=== PATIENT | female | born 1970 | race Caucasian/White ===

== ENCOUNTER 2017-09-22 21:16 | Inpatient (IN) | payer BC ==
[2017-09-22 21:36] LABS: URINE APPEARANCE CLEAR; URINE BILIRUBIN NEGATIVE (NEGATIVE); URINE BLOOD LARGE (NEGATIVE); URINE COLOR YELLOW; URINE GLUCOSE (UA) NEGATIVE (NEGATIVE); URINE KETONE NEGATIVE (NEGATIVE); URINE LEUKOCYTE ESTERASE TRACE (NEGATIVE); URINE NITRITE NEGATIVE (NEGATIVE); URINE PROTEIN NEGATIVE (NEGATIVE); URINE UROBILINOGEN 0.2 E.U./dL (0.20 - 1.00)
[2017-09-22] MEDS ORDERED: 0.9 % SODIUM CHLORIDE 1,000 ML BAG IV ONE (21:36)
[2017-09-22] MEDS ORDERED: ONDANSETRON HCL IV 4 MG/2 ML VIAL IV ONE (21:36)
[2017-09-22] MEDS ORDERED: HYDROMORPHONE HCL 2 MG/ML VIAL IVP ONE (21:37)
--- NOTE | 2017-09-22 21:44 | Emergency Department Record ---
History of Present Illness - General Chief complaint: Flank Pain Stated complaint: DRY HEAVES,BACK /ABDOMINAL PAIN Time Seen by Provider: 09/22/17 21:27 Source: Patient Mode of Arrival: Ambulatory Limitations: No limitations - History of Present Illness Initial comments: pt has been having r flank pain and r sided ap for 2 hours. she has dry heaves w nothing coming up. she has had gastric bypass a few years ago and has lost 100lbs. she has never had pain like this before. the pain is constant. she had 1 bout of diarrhea MD Complaint: Other Onset/Timin -: Hour(s) Location: Other (r lank and ruq and rlq) Radiation: RLQ Severity scale (1-10): 10 Quality: Sharp Consistency: Constant Improves with: None Worsens with: None Patient : No Associated Symptoms: Nausea/vomiting - Related Data Allergies Allergy/AdvReac Type Severity Reaction Status Date / Time NSAIDS (Non-Steroidal AdvReac pt had Unverified 04/26/16 11:37 Anti-Inflamma gastric bypass surgery Travel Screening - Travel/Exposure Within Last 30 Days Have you traveled within the last 30 days?: No Review of Systems Reviewed: No additional complaints except as noted below Constitutional: Reports: As per HPI. Denies: Chills, Fever, Malaise, Night sweats, Weakness, Weight change Eyes: Reports: As per HPI. Denies: Eye discharge, Eye pain, Photophobia, Vision change ENT: Reports: As per HPI. Denies: Congestion, Dental pain, Ear pain, Epistaxis , Hearing loss, Throat pain Respiratory: Reports: As per HPI. Denies: Cough, Dyspnea, Hemoptysis, Stridor, Wheezes Cardiovascular: Reports: As per HPI. Denies: Arrhythmia, Chest pain, Dyspnea on exertion, Edema, Murmurs, Orthopnea, Palpitations, Paroxysmal nocturnal dyspnea, Rheumatic Fever, Syncope Endocrine: Reports: As per HPI. Denies: Fatigue, Heat or cold intolerance, Polydipsia, Polyuria Gastrointestinal: Reports: As per HPI, Abdominal pain, Diarrhea, Nausea. Denies : Constipation, Hematemesis, Hematochezia, Melena, Vomiting Genitourinary: Reports: As per HPI. Denies: Abnormal menses, Discharge, Dyspareunia, Dysuria, Frequency, Hematuria, Incontinence, Retention, Urgency Musculoskeletal: Reports: As per HPI. Denies: Arthralgia, Back pain, Gout, Joint swelling, Myalgia, Neck pain Skin: Reports: As per HPI. Denies: Bruising, Change in color, Change in hair/ nails, Lesions, Pruritus, Rash Neurological: Reports: As per HPI. Denies: Abnormal gait, Confusion, Headache, Numbness, Paresthesias, Seizure, Tingling, Tremors, Vertigo, Weakness Psychiatric: Reports: As per HPI. Denies: Anxiety, Auditory hallucinations, Depression, Homicidal thoughts, Suicidal thoughts, Visual hallucinations Hematological/Lymphatic: Reports: As per HPI. Denies: Anemia, Blood Clots, Easy bleeding, Easy bruising, Swollen glands Past Medical History - SOCIAL HISTORY Smoking Status: Current every day smoker Alcohol Use: None Drug Use: None - RESPIRATORY Hx Respiratory Disorders: No - CARDIOVASCULAR Hx Cardio Disorders: No - NEURO Hx Neuro Disorders: No - GI Hx GI Disorders: No - Hx Genitourinary Disorders: No - ENDOCRINE Hx Endocrine Disorders: No - MUSCULOSKELETAL Hx Musculoskeletal Disorders: No - PSYCH Hx Psych Problems: No - HEMATOLOGY/ONCOLOGY Hx Hematology/Oncology Disorders: No Family Medical History Any Significant Family History?: Yes Hx Cancer: Brother/Sister Physical Exam - General General Appearance: Alert, Oriented x3, Cooperative, Mild distress - Head Head exam: Normal inspection - Eye Eye exam: Normal appearance, PERRL, EOMI Pupils: Normal accommodation - ENT ENT exam: Normal exam, Mucous membranes moist, Normal external ear exam, Normal orophraynx Ear exam: Normal external inspection. negative: External canal tenderness Nasal Exam: Normal inspection. negative: Discharge, Sinus tenderness Mouth exam: Normal external inspection, Tongue normal Teeth exam: Normal inspection. negative: Dental caries Throat exam: Normal inspection. negative: Tonsillar erythema, Tonsillar exudate - Neck Neck exam: Normal inspection, Full ROM. negative: Tenderness - Respiratory Respiratory exam: Normal lung sounds bilaterally. negative: Respiratory distress - Cardiovascular Cardiovascular Exam: Regular rate, Normal rhythm, Normal heart sounds - GI/Abdominal GI/Abdominal exam: Soft, Normal bowel sounds. negative: Tenderness - Rectal Rectal exam: Heme (-) stool - exam: Deferred - Extremities Extremities exam: Normal inspection, Full ROM, Normal capillary refill. negative: Tenderness - Back Back exam: Reports: Normal inspection, Full ROM. Denies: Muscle spasm, Rash noted, Tenderness - Neurological Neurological exam: Alert, CN II-XII intact, Normal gait, Oriented X3 - Psychiatric Psychiatric exam: Normal affect, Normal mood - Skin Skin exam: Dry, Intact, Normal color, Warm Course Vital Signs 09/22/17 21:23 Temperature 99.0 F Pulse Rate 92 H Respiratory 16 Rate Blood Pressure 136/81 Pulse Ox 100 - Reevaluation(s) Reevaluation #1: 09/22/17 23:[address] is neg. pts hgb has dropped to 6.3 from 13. her menses have been heavy. her hemoccult is neg. her liver enzymes are elevated and she is tender over her ruq. Medical Decision Making - Lab Data Result diagrams: 09/22/17 21:40 09/22/17 21:40 Lab Results 09/22/17 Range/Units 21:33 Urine Color Yellow Urine Appearance Clear Urine pH 7.0 (5.0-8.0) Ur Specific [place] 1.010 (1.002-1.030) Urine Protein Negative (NEGATIVE) Urine Glucose (UA) Negative (NEGATIVE) Urine Ketones Negative (NEGATIVE) Urine Blood Large H (NEGATIVE) Urine Nitrite Negative (NEGATIVE) Urine Bilirubin Negative (NEGATIVE) Urine Urobilinogen 0.2 (0.20 - 1.00) E.U./dL Ur Leukocyte Esterase Trace H (NEGATIVE) Disposition Disposition: Admit Clinical Impression: Acute anemia, Elevated liver enzymes Abdominal pain Qualifiers: Abdominal location: right upper quadrant Qualified Code(s): R10.11 - Right upper quadrant pain Disposition: Still a Patient at [facility] Decision to Admit: Admit from ER Decision to Admit Date: 09/22/17 Decision to Admit Time: 23:05 Forms: Patient Portal Access Quality - Quality Measures Quality Measures: N/A - Blood Pressure Screening Does Patient Have Any of the Following: No Blood Pressure Classification: Pre-Hypertensive BP Reading Systolic Measurement: 136 Diastolic Measurement: 81 Screening for High Blood Pressure: < Pre-Hypertensive BP, F/U Documented > [ [id number]] Pre-Hypertensive Follow-up Interventions: Follow-up with rescreen every year.
[2017-09-22 21:45] LABS: URINE BACTERIA NONE SEEN; URINE RBC 21 - 35 (NONE SEEN); URINE WBC 0 - 2 (0-2/hpf)
[2017-09-22 21:50] LABS: BASO % 0.2 % (0-6); EOS % 1.8 % (0-6); GRAN % 78.9 % (47-80); HEMATOCRIT 22.9 % (35.0-47.0); LYMPH % 12.7 % (16-45); MEAN CELL VOLUME 59.6 fl (81-97); MEAN CORPUSCULAR HEMOGLOBIN 16.4 pg (27-33); MEAN CORPUSCULAR HGB CONC 27.5 g/dl (32-36); MEAN PLATELET VOLUME 9.4 fl (7.4-10.4); MONO % 6.4 % (0-9); PLATELET COUNT 470 K/uL (130-400); RED BLOOD COUNT 3.84 M/uL (3.80-5.40); RED CELL DISTRIBUTION WIDTH 21.1 % (11.5-14.5); WHITE BLOOD COUNT W/O DIFF 10.3 K/uL (4.2-12.2)
[2017-09-22 21:53] LABS: HEMOGLOBIN 6.3 gm/dl (11.6-16.0)
[2017-09-22 22:03] LABS: BLOOD UREA NITROGEN 4 mg/dL (6-20)
[2017-09-22 22:04] LABS: CREATININE 0.4 mg/dL (0.5-0.9); EST GLOMERULAR FILTRATION RATE > 60 mL/min; TOTAL PROTEIN 7.3 g/dL (6.6-8.7)
[2017-09-22 22:06] LABS: GLUCOSE,RANDOM 147 mg/dL (74-109)
[2017-09-22 22:09] LABS: ALB/GLOB RATIO 1.2 (1.1-1.8); ALKALINE PHOSPHATASE 405 U/L (35-104); ALT/SGPT 83 U/L (<33); AST/SGOT 168 U/L (10.0-35.0); LIPASE 51 U/L (13-60)
[2017-09-22 22:22] LABS: ABO GROUP O; RH TYPE POSITIVE
[2017-09-22 22:32] LABS: ANTIBODY SCREEN NEGATIVE (NEGATIVE)
[2017-09-22] MEDS ORDERED: DIPHENHYDRAMINE HCL 50 MG/ML VIAL IVP ONE (23:12)
[2017-09-22] MEDS ORDERED: ONDANSETRON HCL IV 4 MG/2 ML VIAL IVP PRN (23:32)
[2017-09-22] MEDS ORDERED: DIPHENHYDRAMINE HCL 50 MG/ML VIAL IVP PRN (23:32)
[2017-09-22] MEDS ORDERED: TEMAZEPAM 15 MG CAPSULE PO PRN (23:32)
[2017-09-22 23:38] LABS: IMMED. SPIN CROSSMATCH COMPATIBLE
[2017-09-23] MEDS ORDERED: PNEUM 23-VAL ADULT IM ONE (00:14)
[2017-09-23] MEDS ORDERED: 0.9 % SODIUM CHLORIDE 1000ML 1,000 ML IV ONE (02:00)
[2017-09-23] MEDS: HYDROMORPHONE HCL 2 MG/ML VIAL IV PRN ×4 (02:20→20:28)
[2017-09-23 02:42] LABS: HEMATOCRIT 23.7 % (35.0-47.0); MEAN CELL VOLUME 62.2 fl (81-97); MEAN CORPUSCULAR HEMOGLOBIN 17.3 pg (27-33); MEAN CORPUSCULAR HGB CONC 27.8 g/dl (32-36); MEAN PLATELET VOLUME 10.2 fl (7.4-10.4); PLATELET COUNT 419 K/uL (130-400); RED BLOOD COUNT 3.81 M/uL (3.80-5.40); RED CELL DISTRIBUTION WIDTH 22.8 % (11.5-14.5)
[2017-09-23 02:43] LABS: HEMOGLOBIN 6.6 gm/dl (11.6-16.0)
[2017-09-23 02:53] LABS: BLOOD UREA NITROGEN 4 mg/dL (6-20); PROTHROMBIN TIME (PATIENT) 10.8 SECONDS (9.5-12.1)
[2017-09-23 02:54] LABS: CREATININE 0.4 mg/dL (0.5-0.9); EST GLOMERULAR FILTRATION RATE > 60 mL/min; TOTAL PROTEIN 6.6 g/dL (6.6-8.7)
[2017-09-23 02:56] LABS: GLUCOSE,RANDOM 115 mg/dL (74-109)
[2017-09-23 02:59] LABS: ALB/GLOB RATIO 1.3 (1.1-1.8); ALBUMIN 3.7 g/dL (4.0-5.0); ALKALINE PHOSPHATASE 396 U/L (35-104); ALT/SGPT 206 U/L (<33); AST/SGOT 375 U/L (10.0-35.0)
[2017-09-23 03:27] LABS: URINE APPEARANCE CLEAR; URINE BILIRUBIN NEGATIVE (NEGATIVE); URINE BLOOD NEGATIVE (NEGATIVE); URINE COLOR YELLOW; URINE GLUCOSE (UA) NEGATIVE (NEGATIVE); URINE KETONE NEGATIVE (NEGATIVE); URINE LEUKOCYTE ESTERASE NEGATIVE (NEGATIVE); URINE NITRITE NEGATIVE (NEGATIVE); URINE PROTEIN NEGATIVE (NEGATIVE); URINE UROBILINOGEN 0.2 E.U./dL (0.20 - 1.00)
[2017-09-23] MEDS: ACETAMINOPHEN 325 MG TAB PO ONE ×2 (03:44→09:36)
[2017-09-23] MEDS: 0.9 % SODIUM CHLORIDE 1000ML 1,000 ML IV PRN ×2 (04:20→16:54)
[2017-09-23 07:15] LABS: BASO % 0.1 % (0-6); EOS % 2.4 % (0-6); GRAN % 77.9 % (47-80); HEMATOCRIT 21.8 % (35.0-47.0); LYMPH % 13.2 % (16-45); MEAN CORPUSCULAR HEMOGLOBIN 17.4 pg (27-33); MEAN PLATELET VOLUME 9.6 fl (7.4-10.4); MONO % 6.4 % (0-9); PLATELET COUNT 369 K/uL (130-400); WHITE BLOOD COUNT W/O DIFF 8.8 K/uL (4.2-12.2)
--- NOTE | 2017-09-23 07:17 | CT SCAN REPORT ---
EXAM: CT OF THE ABDOMEN AND PELVIS HISTORY: RIGHT FLANK PAIN. TECHNIQUE: CT of the abdomen and pelvis was performed without oral or IV contrast. This limits evaluation of bowel and solid visceral organs. Comparison: None. FINDINGS: Limited evaluation of the lung bases is unremarkable. The osseous structures are grossly intact. Post surgical changes in the epigastric region. Limited evaluation of the liver, spleen, adrenal glands, pancreas, and kidneys is unremarkable. The gallbladder is present. No discreet urinary tract calculus. No hydronephrosis. There is a large amount of stool in the colon. No free air or free fluid. The appendix is not well seen. No pericecal inflammation. IMPRESSION: STATUS POST GASTRIC BYPASS SURGERY. NO DISCREET URINARY TRACT CALCULUS OR HYDRONEPHROSIS. JOB NUMBER: [id number] MTDD
[2017-09-23 07:28] LABS: ALB/GLOB RATIO 1.2 (1.1-1.8); ALBUMIN 3.3 g/dL (4.0-5.0); ALKALINE PHOSPHATASE 357 U/L (35-104); ALT/SGPT 195 U/L (<33); AST/SGOT 268 U/L (10.0-35.0); BLOOD UREA NITROGEN 5 mg/dL (6-20); CREATININE 0.4 mg/dL (0.5-0.9); EST GLOMERULAR FILTRATION RATE > 60 mL/min; GLUCOSE,RANDOM 93 mg/dL (74-109); TOTAL PROTEIN 6.1 g/dL (6.6-8.7)
[2017-09-23 07:30] LABS: HEMOGLOBIN 6.1 gm/dl (11.6-16.0); MEAN CELL VOLUME 62.3 fl (81-97)
[2017-09-23 07:31] LABS: RED CELL DISTRIBUTION WIDTH 22.3 % (11.5-14.5)
[2017-09-23 09:18] LABS: IMMED. SPIN CROSSMATCH COMPATIBLE
[2017-09-23] MEDS ORDERED: ACETAMINOPHEN 325 MG TAB PO PRN (09:30)
[2017-09-23] MEDS: DIPHENHYDRAMINE HCL 50 MG/ML VIAL IVP PRN ×3 (10:31→21:11)
[2017-09-23] MEDS: ERTAPENEM SODIUM 1 G in 0.9 % SODIUM CHLORIDE 100ML 100 ML IV SCH (12:25)
[2017-09-23 19:10] LABS: FERRITIN 16.54 ng/mL (13-150)
--- NOTE | 2017-09-23 21:05 | ULTRASOUND REPORT ---
EXAM: ULTRASOUND ABDOMEN, COMPLETE HISTORY: RIGHT UPPER QUADRANT ABDOMINAL PAIN. ELEVATED LIVER ENZYMES. PRIOR GASTRIC BYPASS IN 2016. TECHNIQUE: Routine ultrasound examination of the abdomen is performed. COMPARISON: CT abdomen and pelvis without contrast dated 09/22/2017. FINDINGS: The pancreatic tail is obscured by overlying bowel gas. The remainder of the pancreas is well visualized and normal in appearance. The abdominal aorta is without aneurysmal dilatation and the intrahepatic IVC is patent. The liver is homogeneous in echotexture. No intra or extrahepatic biliary ductal dilatation is seen with the common hepatic duct measuring 2.8 mm. There is at least one small mobile shadowing gallstone. No gross gallbladder wall thickening. No pericholecystic fluid and there is a negative sonographic Lopes sign. The spleen is not optimally visualized due to poor sonographic window. It is not enlarged. Screening evaluation of the kidneys does not demonstrate hydronephrosis. The right kidney measures 11.4 cm in length and the left kidney measures 10.9 cm in length. There is a well-circumscribed thin-walled anechoic mass within the left kidney with enhanced posterior through-transmission. There may be one or two thin septa within. No other cystic nor contour-deforming solid renal mass. IMPRESSION: 1. CHOLELITHIASIS WITHOUT SONOGRAPHIC EVIDENCE OF ACUTE CHOLECYSTITIS. NORMAL COMMON BILE DUCT DIAMETER. 2. BOSNIAK TYPE II LEFT RENAL CYST. JOB NUMBER: [id number] [facility]
[2017-09-24] MEDS: 0.9 % SODIUM CHLORIDE 1000ML 1,000 ML IV PRN (01:35)
[2017-09-24] MEDS: HYDROMORPHONE HCL 2 MG/ML VIAL IV PRN (03:23)
[2017-09-24] MEDS: DIPHENHYDRAMINE HCL 50 MG/ML VIAL IVP PRN ×2 (03:24→15:56)
[2017-09-24] MEDS ORDERED: IRON SUCROSE COMPLEX 500 MG in 0.9 % SODIUM CHLORIDE 250ML 250 ML IVPB ONE ×2 (06:40→10:30)
[2017-09-24 08:10] LABS: HEP A AB IGM Nonreactive (Nonreactive); HEPATITIS B CORE ANTIBODY,IGM Nonreactive (Nonreactive); HEPATITIS B SURFACE ANTIGEN Nonreactive (Nonreactive); HEPATITIS C VIRUS ANTIBODY Nonreactive (Nonreactive)
[2017-09-24 08:33] LABS: HEMOGLOBIN 6.8 gm/dl (11.6-16.0)
[2017-09-24] MEDS: ERTAPENEM SODIUM 1 G in 0.9 % SODIUM CHLORIDE 100ML 100 ML IV SCH (09:51)
[2017-09-24 09:58] LABS: TOTAL PROTEIN 6.2 g/dL (6.6-8.7)
[2017-09-24 10:02] LABS: ALT/SGPT 134 U/L (<33)
[2017-09-24 10:03] LABS: ALBUMIN 3.4 g/dL (4.0-5.0); ALKALINE PHOSPHATASE 318 U/L (35-104); AST/SGOT 117 U/L (10.0-35.0); BILIRUBIN,DIRECT < 0.2 mg/dL (0-0.3)
--- NOTE | 2017-09-24 10:10 | History and Physical Report ---
DATE OF ADMISSION: 09/22/2017 Surgeon: Kaleb Ventura DO CHIEF COMPLAINT: Right upper quadrant and right lower quadrant abdominal pain started yesterday on 09/22/2017 at 6:00 p.m., came into the emergency department approximately 8:00 p.m., evaluated by Dr. Hope and admitted to the hospital for anemia, elevated liver enzymes. HISTORY OF PRESENT ILLNESS: The patient had gastric bypass 2015, lost 100 pounds, but she is having significant pain that was controlled with Dilaudid 0.5 mg in the emergency department. She also states she has heavy vaginal periods. Her primary doctor is Dr. Wai Correa through Dr. Sanders. She also stated that she had 3 bouts of diarrhea yesterday, but her stools are loose because of her gastric bypass. No bowel movements today on my evaluation of her. PAST MEDICAL HISTORY: Gastric bypass in [place]. Tubal ligation, T & A. She has had problems with anemia, uses iron patches. SOCIAL HISTORY: She is a current smoker, one pack a day. MEDICATIONS ON ADMISSION: 1. Iron patches. 2. A multiple vitamin patch. ALLERGIES: NONSTEROIDAL ANTI-INFLAMMATORY MEDICATIONS. FAMILY PSYCHOSOCIAL HISTORY: 1 pack a day smoking, no alcohol use, no significant family history. REVIEW OF SYSTEMS: HEENT: No upper respiratory infectious symptoms, cough, cold, or congestion. CARDIOVASCULAR: No chest pain, palpitations, or arrhythmias. RESPIRATORY: No cough, cold, or congestion. GASTROINTESTINAL: See chief complaint. She has abdominal pain, anemia. Hemoccult stool negative, but per Dr. Hope. GENITOURINARY: No dysuria, hematuria, or frequency or burning on urination. MUSCULOSKELETAL: No joint or bone abnormalities. NEUROLOGIC: No CVA paralysis or paresthesias. GYNECOLOGIC: She has dysfunctional dysmenorrhea with heavy vaginal bleeding. She has gastric bypass surgery. ENDOCRINE: No diabetes or thyroid disease. INTEGUMENT: No rash, ulcer, change in moles, no yellow skin. PHYSICAL EXAMINATION: GENERAL: Height is 5 feet 6 inches, weight is 155 pounds. VITAL SIGNS: Temperature 98.6 in the emergency department, pulse is 95, blood pressure is 122/61, respiratory rate is 60, pulse OX is 98% on room air. During the middle of the night her fever went up to 102 and she has had fevers on and off throughout the day. Her blood was stopped after 3/4 of a unit, transfusion reaction was checked for, nothing was found. Ultrasound of the gallbladder revealed 1 stone in the gallbladder, but no signs of cholecystitis. HEENT: Pupils are equal, round, and reactive to light and accomodation. Extraocular muscles intact. Throat is clear. Nose is clear. Tympanic membranes are springer. NECK: Supple. No jugular venous distention, no hepatojugular reflux, no carotid bruits. Thyroid is smooth. CARDIOVASCULAR: Regular rate and rhythm without murmurs, clicks, rubs, or gallops. RESPIRATORY: Clear to auscultation and percussion. ABDOMEN: Pain in the right upper quadrant and right lower quadrant and left lower quadrant. EXTREMITIES: No pitting edema, no cyanosis, no clubbing. Full range of motion, peripheral pulses are good. BREASTS: Deferred. GYNECOLOGIC: Deferred. RECTAL: Deferred. GENITALIA: Normal female genitalia. NEUROLOGIC: Cranial nerves II through XII intact. No gross defects. Sensation normal, strength normal, deep tendon reflexes equal bilaterally. Babinski's is negative. MENTAL STATUS: Alert and oriented x 3. IMPRESSION: 1. Fever. 2. Gallstones by ultrasound, 1 mobile stone. 3. Elevated liver enzymes, rule out hepatitis. 4. Anemia, hemoglobin 6.3. 5. Dysmenorrhea with heavy vaginal bleeding. 6. History of poison kenn, mostly cleared up and using Benadryl for that. 7. Status post gastric bypass 2016 in [place]. PLAN: 1. I discussed the case with Dr. Gomez. We will try continued conservative therapy. Start Invanz 1 gram a day, transfuse 2 units of blood. 2. Benadryl for poison kenn. INPATIENT CERTIFICATION: Admit to inpatient care based on my medical assessment after consideration of the patient risk factors, age, comorbidities, and the patient's presenting symptoms, and acuity. I expect that this patient will remain in the hospital for greater than or equal to 2 midnights and that the services needed warrant inpatient care because of anemia and unknown reason for fever and abdominal pain. ESTIMATED LENGTH OF STAY: 3 days. The patient may reasonably expect to be discharged or transferred to a hospital within 96 hours after admission to [facility]. I certify that my determination is in accordance with my understanding of Medicare requirements for reasonable and necessary inpatient services. MAURY
[2017-09-24 14:41] LABS: IMMED. SPIN CROSSMATCH COMPATIBLE
[2017-09-24] MEDS: HYDROCODONE/APAP 5/325MG TABLET PO PRN ×2 (16:37→23:04)
[2017-09-24 20:06] LABS: HEMATOCRIT 28.1 % (35.0-47.0)
[2017-09-25 07:27] LABS: HEMATOCRIT 26.6 % (35.0-47.0); HEMOGLOBIN 7.7 gm/dl (11.6-16.0); MEAN CORPUSCULAR HGB CONC 28.9 g/dl (32-36); MEAN PLATELET VOLUME 10.2 fl (7.4-10.4); PLATELET COUNT 349 K/uL (130-400); RED BLOOD COUNT 3.97 M/uL (3.80-5.40); RED CELL DISTRIBUTION WIDTH 27.3 % (11.5-14.5); WHITE BLOOD COUNT W/O DIFF 8.9 K/uL (4.2-12.2)
[2017-09-25 07:31] LABS: BLOOD UREA NITROGEN 3 mg/dL (6-20); CREATININE 0.4 mg/dL (0.5-0.9); EST GLOMERULAR FILTRATION RATE > 60 mL/min; MEAN CORPUSCULAR HEMOGLOBIN 19.3 pg (27-33)
[2017-09-25 07:32] LABS: TOTAL PROTEIN 6.4 g/dL (6.6-8.7)
[2017-09-25 07:34] LABS: GLUCOSE,RANDOM 89 mg/dL (74-109)
[2017-09-25 07:36] LABS: ALBUMIN 3.6 g/dL (4.0-5.0); ALKALINE PHOSPHATASE 332 U/L (35-104); ALT/SGPT 101 U/L (<33); AST/SGOT 65 U/L (10.0-35.0)
[2017-09-25 07:37] LABS: LIPASE 21 U/L (13-60)
[2017-09-25 07:40] LABS: BILIRUBIN,DIRECT < 0.2 mg/dL (0-0.3)
[2017-09-25] MEDS: 0.9 % SODIUM CHLORIDE 1000ML 1,000 ML IV ONE ×2 (10:11→11:01)
[2017-09-25] MEDS: ERTAPENEM SODIUM 1 G in 0.9 % SODIUM CHLORIDE 100ML 100 ML IV SCH (10:12)
--- NOTE | 2017-09-25 18:24 | Discharge Note ---
VTE H&P Assessment - Risk for VTE Risk for VTE: No Risk Level: Very Low Risk Assessment Date: 09/23/17 Risk Assessment Time: 19:00 VTE Orders Placed or Will Be Placed: No VTE Reason for No Prophylaxis: Not Indicated Discharge Medications - Discharge Medications Prescriptions: Ciprofloxacin HCl [Cipro] 500 mg PO Q12HR #14 tablet Hydrocodone/APAP 5/325Mg [[place] 5Mg/325Mg] 1 each PO Q6H PRN #30 tab PRN Reason: Analgesia Home Medications: Ambulatory Orders Multi Vitamin Patch 1 patch TD DAILY 12/25/15 [Last Taken 01/08/16] Ciprofloxacin HCl [Cipro] 500 mg PO Q12HR #14 tablet 09/25/17 [Last Taken Unknown] Hydrocodone/APAP 5/325Mg [[place] 5Mg/325Mg] 1 each PO Q6H PRN #30 tab 09/25/17 [ Last Taken Unknown] Discharge Note - Date Date of Discharge Note: 09/25/17 Disposition: Home, Self-Care Condition: (1) Good Additional Instructions: follow up with Dr. Gomez on friday Nothing by mouth after midnight friday night low fat diet Forms: Patient Portal Access Activity at Discharge: Increase Activity as Tolerated Diet at Discharge: Low Fat, Low Cholesterol
--- NOTE | 2017-09-25 18:34 | Discharge Note ---
VTE H&P Assessment - Risk for VTE Risk for VTE: No Risk Level: Very Low Risk Assessment Date: 09/23/17 Risk Assessment Time: 19:00 VTE Orders Placed or Will Be Placed: No VTE Reason for No Prophylaxis: Not Indicated Discharge Medications - Discharge Medications Prescriptions: Ciprofloxacin HCl [Cipro] 500 mg PO Q12HR #14 tablet Hydrocodone/APAP 5/325Mg [[place] 5Mg/325Mg] 1 each PO Q6H PRN #30 tab PRN Reason: Analgesia Home Medications: Ambulatory Orders Multi Vitamin Patch 1 patch TD DAILY 12/25/15 [Last Taken 01/08/16] Ciprofloxacin HCl [Cipro] 500 mg PO Q12HR #14 tablet 09/25/17 [Last Taken Unknown] Hydrocodone/APAP 5/325Mg [[place] 5Mg/325Mg] 1 each PO Q6H PRN #30 tab 09/25/17 [ Last Taken Unknown] Discharge Note - Date Date of Discharge Note: 09/25/17 Disposition: Home, Self-Care Condition: (1) Good Additional Instructions: follow up with Dr. Gomez on friday Nothing by mouth after midnight friday night low fat diet follow up with family dr in one to two weeks to follow iron therapy increase iron patches to two per day Prescriptions: Ciprofloxacin HCl [Cipro] 500 mg PO Q12HR #14 tablet Hydrocodone/APAP 5/325Mg [[place] 5Mg/325Mg] 1 each PO Q6H PRN #30 tab PRN Reason: Analgesia Referrals: KAREEN MACHADO [Primary Care Provider] - Forms: Patient Portal Access Activity at Discharge: Increase Activity as Tolerated
--- NOTE | 2017-09-26 09:50 | Discharge Summary ---
DATE OF DISCHARGE: 09/25/2017 TIME: 6:36 p.m. Attending physician: Kaleb Ventura DO DISCHARGE DIAGNOSES: 1. Abdominal pain right upper quadrant. 2. Acute cholecystitis. 3. Gallbladder stone. 4. History of gastric bypass in 2015. 5. Anemia secondary to malabsorption. 6. Dysmenorrhea with heavy vaginal periods. 7. History of poison kenn, mostly cleared up with Benadryl use only. 8. Elevated liver enzymes, rule out hepatitis, possibly from gallstone abnormalities. REASON FOR HOSPITALIZATION: Right upper quadrant abdominal pain, right lower quadrant abdominal pain, started yesterday, the day prior to admission on 09/22/2017. Came to the emergency department about 8:00 p.m., evaluated by Dr. Hope and admitted to the hospital for anemia with elevated liver enzymes. The patient has had gastric bypass 2015, lost 100 pounds, but she is having significant pain that was controlled with Dilaudid in the emergency department. She also states she has heavy vaginal periods. Her primary doctor is Dr. Wai Correa and Dr. Sanders. She had 3 bouts of diarrhea yesterday, but she has a gastric bypass and occasionally has loose stools, but a lot of times she is constipated. No bowel movement on 09/22/2017. SIGNIFICANT FINDINGS: CAT scan of the abdomen and pelvis. Status post gastric bypass surgery, no discrete urinary track calculus or hydronephrosis, no other significant abnormalities seen. Ultrasound of the abdomen showing cholelithiasis without sonographic evidence of acute cholecystitis, normal common bile duct diameter, Bosniak type 2 left renal cyst. LABORATORY: Hemoglobin was 6.3 in the emergency department. WBC is 10,300, hypovolemic hypochromic anemia. Her potassium is 3.8, sodium is 134, chloride is 96, total iron binding capacity 452, serum iron was 9%, saturation was 1%. Ferritin is 16.54. Total bili is 0.3, was never elevated. Liver enzymes were elevated, but they gradually came down during the hospitalization. Her final liver enzymes were; AST was 65, ALT was 101. Alkaline phosphate is 332. Her hemoglobin on discharge is 7.7. THERAPY PROVIDED: We gave IV fluids, pain control, and IV Invanz. She had a fever in the emergency department and also on the first couple of days of admission. We will switch over to Cipro 500 mg twice a day for 7 days. The patient is feeling much better, tolerating food, and at this point is now going to be discharged home for outpatient therapy with Dr. Gomez on Friday for possible gallbladder removal. She is to be N.P.O. after midnight on Friday. She is to increase her iron patches to 2 patches a day, and continue her home medications. I have given her a script for [place] 5 mg q.6 hours, #30 pills, p.r.n. pain, Cipro 500 mg b.i.d. for 7 days. She will continue with her home medications. Follow up with Dr. Wai Correa in 1 to 2 weeks. HOME MEDICATIONS: Multiple vitamin patch 1 a day, continue that. MTDD
== END 2017-09-25 19:00 | disposition home or self-care (01) | DRG 392 ==
LOC: ER 21:16 → MEDSURG 23:24
PROVIDERS: ADMIT Emergency Medicine; ATTEND Emergency Medicine
DX: R10.12 Left upper quadrant pain (principal); D64.9 Anemia, unspecified; R94.5 Abnormal results of liver function studies; R50.9 Fever, unspecified; R19.7 Diarrhea, unspecified; N94.6 Dysmenorrhea, unspecified; F17.210 Nicotine dependence, cigarettes, uncomplicated
CPT/HCPCS: 36430; 74176; 76700; 80048; 80053; 80076; 81001; 81003; 81025; 82607; 82728; 82746; 83550; 83690; 85014; 85018; 85025; 85027; 85610; 85730; 86705; 86803; 86850; 86900; 86901; 87040; 87340; 96361; 96374; 96375; 99223; 99233; 99239; 99285; J1200; J2405; J7030; J7050

== ENCOUNTER 2017-09-29 08:49 | Day surgery (SDC) | payer BC ==
[2017-09-29] MEDS ORDERED: PROPOFOL 10 MG/ML VIAL IV ONE (08:50)
[2017-09-29] MEDS ORDERED: METOCLOPRAMIDE 10 MG TABLET PO ONE (08:50)
[2017-09-29] MEDS ORDERED: MIDAZOLAM HCL 2MG/2ML VIAL IV ONE (08:50)
[2017-09-29] MEDS ORDERED: LIDOCAINE 1% MDV (10MG/ML) 20ML VIAL SQ ONE (08:50)
[2017-09-29] MEDS ORDERED: ONDANSETRON HCL IV 4 MG/2 ML VIAL IVP ONE ×2 (08:50)
[2017-09-29] MEDS ORDERED: FENTANYL PF 100MCG/2ML VIAL IV ONE (08:50)
[2017-09-29] MEDS ORDERED: GLYCOPYRROLATE 0.2 MG/ML ML IV ONE (08:50)
[2017-09-29] MEDS ORDERED: SEVOFLURANE 250 ML INH ONE (08:50)
[2017-09-29] MEDS ORDERED: SUCCINYLCHOLINE 20 MG/ML 10ML IVP ONE (08:50)
[2017-09-29] MEDS ORDERED: MECLIZINE 25 MG TABLET PO ONE (08:50)
[2017-09-29] MEDS ORDERED: ACETAMINOPHEN 1,000 MG/100 ML BTL IV ONE (08:50)
[2017-09-29] MEDS ORDERED: BUPIVACAINE 0.25% W/EPI MPF 30ML VIAL IVP ONE (08:50)
[2017-09-29] MEDS ORDERED: HYDROCODONE/APAP 5/325MG TABLET PO ONE (08:50)
[2017-09-29] MEDS ORDERED: NEOSTIGMINE 1 MG/1 ML,10ML VIAL IV ONE (08:50)
[2017-09-29] MEDS ORDERED: MORPHINE SULFATE 4MG/ML PREFILLED SYRINGE IVP ONE (08:50)
[2017-09-29] MEDS ORDERED: ROCURONIUM BROMIDE 50MG/5ML VIAL IV ONE (08:50)
[2017-09-29] MEDS ORDERED: FAMOTIDINE 20MG TABLET PO ONE (08:50)
--- NOTE | 2017-09-30 12:21 | Operative Note ---
DATE OF SURGERY: 09/29/2017 Surgeon: Zuhair Gomez DO PREOPERATIVE DIAGNOSIS: Cholelithiasis with chronic cholecystitis. POSTOPERATIVE DIAGNOSIS: Cholelithiasis with chronic cholecystitis. OPERATION: Laparoscopic cholecystectomy. Indication: The patient is a 47-year-old female who was admitted over the weekend with ongoing right upper quadrant pain. Her transaminases have been elevated. These did come down slightly. She has also an issue with chronic anemia most likely due to malabsorption due to her Aj-en-Y gastric bypass. She had a stone near the gallbladder neck. We did discuss cholecystectomy versus medical management. She desired surgical intervention. Risks include but are not limited to bleeding, infection, ductal injury, possible conversion to open, postoperative bile leak. She understood this fully. PROCEDURE: Thereafter, consent was signed and questions answered. She was taken to the operating room and placed in a supine position. General anesthesia was administered per the department of anesthesia. The patient's abdomen was prepped and draped in the usual fashion. The supraumbilical region was anesthetized with a total of 2 mL of 0.25% Sensorcaine with epinephrine. A 2 cm supraumbilical incision was made. This was carried down bluntly to the anterior rectus fascia. This was incised. Tamica clamps were placed on the fascial edges and brought up into the wound. Stay sutures of 0 Vicryl were placed. Posterior rectus sheath was identified and incised. The peritoneal cavity was entered bluntly. At this time, a 10 mm blunt Ayana port was placed. Adequate pneumoperitoneum was established. Under direct visualization, additional 5 mm epigastric and two 5 mm right subcostal ports were placed. The gallbladder was identified. It was noted to be fairly distended. It was retracted in a cephalad and lateral direction opening up the angle of Calot. The hepatocystic triangle was thoroughly dissected out. There was no aberrant anatomy, no posterior ductal structures. The distal half of the gallbladder was released from the cystic plate elongating a retroductal window. The cystic duct and cystic artery were the only structures in the triangle of Calot. These were each doubly clipped and cut in a standard fashion. Gallbladder was then taken off the liver bed with Ori harmonic. This was then extracted through the umbilical port. Right upper quadrant was rechecked and found to be hemostatic. No bleeding. No bile leaking. No bowel injury noted. The patient was leveled out. The pneumoperitoneum was released. All ports were removed. The fascia was closed with 0 Vicryl in a [id number] fashion. The skin at all ports was closed with 4-0 Vicryl. She was taken to the recovery room in satisfactory condition. FINDINGS AT THE TIME OF SURGERY: Chronic cholecystitis. CC: Wai MENDIOLA
== END 2017-09-29 13:50 | disposition home or self-care (01) ==
LOC: SUR 08:49
PROVIDERS: ATTEND Surgery
DX: K80.10 Calculus of gallbladder with chronic cholecystitis without obstruction (principal); D64.9 Anemia, unspecified
CPT/HCPCS: 47562; 00790; J2405; J3010; J2274; C1776; J0330; J2710